=== PATIENT | male | born 1965 | race Caucasian/White ===

== ENCOUNTER 2018-08-06 17:02 | Emergency (ER) | payer MEDICAID, OTHER ==
[~2018-08-06] VITALS: Ht 170.2 cm; Wt 86.2 kg
--- NOTE | 2018-08-06 17:43 | NUR ---
BIBWIFE C/O LEFT HIP PAIN RADIATING TO LEFT LEG SINCE THIS MORNING. PT DENIES TRAUMA HX LEFT HIP REPLACEMENT X 5 YRS AGO. PT AOX3 RR EVEN AND UNLABORED. NO SOB NOTED. NAD NOTED. NO NVD AT THIS TIME. PT PLACED ON MONITOR, LUCIUS GODOY AT BEDSIDE FOR EVAL.
[2018-08-06] MEDS ORDERED: DEXAMETHASONE SOD PHOSPHATE 10 MG/ML VIAL IV ONE (18:00)
[2018-08-06] MEDS ORDERED: HYDROMORPHONE 1 MG/1 ML DISP.SYRIN IV ONE (18:00)
[2018-08-06] MEDS ORDERED: ONDANSETRON HCL/PF 4 MG/2 ML VIAL IV ONE (18:00)
[2018-08-06] MEDS ORDERED: KETOROLAC TROMETHAMINE INJ 30 MG/ML VIAL IV ONE (18:00)
[2018-08-06] MEDS ORDERED: ONDANSETRON HCL/PF 4 MG/2 ML VIAL ONE (18:19)
[2018-08-06] MEDS ORDERED: DEXAMETHASONE SOD PHOSPHATE 10 MG/ML VIAL ONE (18:19)
[2018-08-06] MEDS ORDERED: KETOROLAC TROMETHAMINE INJ 30 MG/ML VIAL ONE (18:19)
[2018-08-06] MEDS ORDERED: HYDROMORPHONE 1 MG/1 ML DISP.SYRIN ONE (18:19)
[2018-08-06 19:10] VITALS: BP 127/75
--- NOTE | 2018-08-06 19:10 | NUR ---
REPORT RECEIVED FROM CAROL ANN ANNE. CARE OF PT ASSUMED BY THIS RN. ASSISTANCE OFFERED. PT STATES HE IS FEELING BETTER AND HOPING TO SLEEP THROUGH THE NIGHT.
--- NOTE | 2018-08-06 19:41 | NUR ---
DISCHARGE INSTRUCTIONS GIVEN VERBAL AND WRITTEN. ADVISED PT ON FOLLOW UP AND TO RETURN TO ED IF FEELING WORSE NOT BETTER. ADIVSED PT AGAINST DRINKING OR DRIVING WHILE TAKING NARCOTICS. VERBALIZED UNDERSTANDING ALL QUESTIONS ANSWERED. IV DISCONTINUED CATHETER TIP INTACT BLEEDING CONTROLLED. SKIN PINK WARM AND DRY RESPS EVEN AND NON LABORED NO ACUTE DISTRESS. PT AMBULATED FROM ED WITH DRIVING, STEADY GAIT.
== END 2018-08-06 19:48 | disposition home or self-care (01) ==
LOC: ER 17:08
DX: M54.17 Radiculopathy, lumbosacral region (principal); M54.5 Low back pain; M51.37 Other intervertebral disc degeneration, lumbosacral region
CPT/HCPCS: 96374; 96375; 99284; A4606; J1100; J1170; J1885; J2405; Z7610

== ENCOUNTER 2018-08-08 19:17 | Emergency (ER) | payer MEDICAID ==
[~2018-08-08] VITALS: Ht 170.2 cm; Wt 94.3 kg
--- NOTE | 2018-08-08 20:00 | NUR ---
TO ER BED 6 C/O BACK PAIN X 3 DAYS. PT HAS HX OF CHRONIC BACK PAIN. PT AA/OX4. DENIES ANY TRUAMA. NO S/S SOB. SKIN PINK, WARM,DRY. MOVES ALL EXTREMITIES. WELL. PEDAL PULSES PRESENT. NAD. VSS. STABLE CONDITION. WILL CONTINUE TO MONITOR.
[2018-08-08] MEDS ORDERED: KETOROLAC TROMETHAMINE INJ 30 MG/ML VIAL ONE (20:43)
[2018-08-08] MEDS ORDERED: MORPHINE SULFATE INJ 4 MG/ML DISP.SYRIN ONE (20:43)
[2018-08-08] MEDS ORDERED: MORPHINE SULFATE INJ 2 MG/ML DISP.SYRIN ONE (20:43)
[2018-08-08] MEDS ORDERED: ONDANSETRON 4 MG TAB.RAPDIS ONE (20:44)
[2018-08-08] MEDS ORDERED: MORPHINE SULFATE INJ 2 MG/ML DISP.SYRIN IM ONE (21:00)
[2018-08-08] MEDS ORDERED: KETOROLAC TROMETHAMINE INJ 60 MG/2 ML VIAL IM ONE (21:00)
[2018-08-08] MEDS ORDERED: ONDANSETRON 4 MG TAB.RAPDIS SL ONE (21:00)
--- NOTE | 2018-08-08 21:44 | NUR ---
Patient is resting comfortably in bed with eyes closed. Easily aroused. VSS
[2018-08-08] MEDS ORDERED: CYCLOBENZAPRINE 10 MG TABLET PO ONE (22:00)
[2018-08-08 22:03] LABS: BASOPHILS % (AUTO) 0.3 % (0.0-2.0); EOSINOPHILS % (AUTO) 1.7 % (0.0-6.0); HEMATOCRIT 44 % (39-51); HEMOGLOBIN 14.1 g/dL (13.5-17.5); LYMPHOCYTES # (AUTO) 4.2 /CMM (0.8-4.8); LYMPHOCYTES % (AUTO) 30.4 % (20.0-44.0); MEAN CORPUSCULAR HGB CONC 32 g/dl (31.0-36.0); MEAN CORPUSCULAR VOLUME 93 fL (80-96); MONOCYTES # (AUTO) 0.9 /CMM (0.1-1.30); MONOCYTES % (AUTO) 6.3 % (2.0-12.0); NEUTROPHILS # (AUTO) 8.4 /CMM (1.8-8.9); NEUTROPHILS % (AUTO) 61.3 % (43.0-81.0); PLATELET COUNT (AUTO) 231 /CMM (150-450); RED BLOOD CELL COUNT(AUTO) 4.71 MIL/uL (4.5-6.0); WHITE BLOOD COUNT (AUTO) 13.7 K/uL (4.3-11.0)
[2018-08-08] MEDS ORDERED: CYCLOBENZAPRINE 10 MG TABLET ONE (22:10)
[2018-08-08 22:12] LABS: CALCIUM, SERUM 8.4 mg/dL (8.5-10.1); POTASSIUM 3.9 mmol/L (3.5-5.1)
--- NOTE | 2018-08-08 22:32 | NUR ---
Note [email or web address] in EDM - 08/08/18 at 2245 by MIKI Patient eloped from facility. ALESSANDRO DILLON notified.Patient has signed AMA form. Patient discharged to home in stable condition. AMBULATED WITH SPOUSE ASSISTANCE. INSTRUCTED NOT TO OPERATE OR DRIVE HEAVY MACHINERY
--- NOTE | 2018-08-08 22:32 | NUR ---
Note james in EDM - 08/08/18 at 2242 by MIKI Patient does not wish to proceed with medical care recommended by Dr. MURO. Patient given information related to possible complications, up to and including , which could occur as a result of leaving the hospital at this time. Patient verbalizes understanding of risks involved due to leaving against medical advice. Patient has signed AMA form. Patient discharged to home in stable condition. Written and verbal after care instructions given. Patient verbalizes understanding of instruction. AMBULATED WITH SPOUSE ASSISTANCE. INSTRUCTED NOT TO OPERATE OR DRIVE HEAVY MACHINERY
--- NOTE | 2018-08-08 22:32 | NUR ---
Patient does not wish to proceed with medical care recommended by LUCIUS JONES. Patient given information related to possible complications, up to and including , which could occur as a result of leaving the hospital at this time. Patient verbalizes understanding of risks involved due to leaving against medical advice. Patient has signed AMA form. Patient discharged to home in stable condition. Written and verbal after care instructions given. Patient verbalizes understanding of instruction. AMBULATED WITH SPOUSE ASSISTANCE. INSTRUCTED NOT TO OPERATE OR DRIVE HEAVY MACHINERY
[2018-08-08 22:34] VITALS: BP 122/76
== END 2018-08-08 22:35 | disposition left against medical advice (07) ==
LOC: ER 19:21
DX: M54.16 Radiculopathy, lumbar region (principal); G89.29 Other chronic pain; M54.30 Sciatica, unspecified side; Z96.642 Presence of left artificial hip joint
CPT/HCPCS: 80048; 85025; 96372 ×2; 99284; A4606; J1885; J2270 ×2; Q0162; Z7610; 36415

== ENCOUNTER 2021-10-21 21:08 | Emergency (ER) | payer MEDICAID ==
[~2021-10-21] VITALS: Ht 167.6 cm; Wt 94.3 kg
[2021-10-21 22:05] VITALS: BP 142/79
[2021-10-21] MEDS ORDERED: HYDROMORPHONE 1 MG/1 ML DISP.SYRIN ONE ×2 (22:50→23:18)
[2021-10-21] MEDS ORDERED: DEXAMETHASONE 4 MG TABLET ONE (22:54)
[2021-10-21] MEDS ORDERED: DEXAMETHASONE 1 MG TABLET PO ONE (23:00)
[2021-10-21] MEDS ORDERED: HYDROMORPHONE 1 MG/1 ML DISP.SYRIN IM ONE ×2 (23:00→23:30)
--- NOTE | 2021-10-21 23:17 | NUR ---
Patient discharged to home in stable condition. Written and verbal after care instructions given. Patient verbalizes understanding of instruction.
== END 2021-10-21 23:53 | disposition home or self-care (01) ==
LOC: ER 21:12
DX: M54.41 Lumbago with sciatica, right side (principal); F17.290 Nicotine dependence, other tobacco product, uncomplicated
CPT/HCPCS: 96372 ×2; 99284; J1170 ×2; J8540

== ENCOUNTER 2021-11-05 03:27 | Emergency (ER) | payer MEDICAID ==
[~2021-11-05] VITALS: Ht 175.3 cm; Wt 90.7 kg
--- NOTE | 2021-11-05 03:41 | NUR ---
BIB FOR C/O R HIP PAIN RADIATING TO R LEG "SCIATIC PAIN". BREATHING EVEN AND UNLABORED PLACED ON MONITOR AND ALL V/S STABLE.
[2021-11-05] MEDS ORDERED: CYCLOBENZAPRINE 10 MG TABLET PO ONE (04:00)
[2021-11-05] MEDS ORDERED: HYDROMORPHONE INJ 2 MG/ML DISP.SYRIN IM ONE ×2 (04:00→05:30)
[2021-11-05] MEDS ORDERED: ONDANSETRON 4 MG TAB.RAPDIS SL ONE (04:00)
[2021-11-05] MEDS ORDERED: KETOROLAC TROMETHAMINE INJ 60 MG/2 ML VIAL IM ONE (04:00)
[2021-11-05] MEDS ORDERED: KETOROLAC TROMETHAMINE INJ 30 MG/ML VIAL ONE (04:07)
[2021-11-05] MEDS ORDERED: HYDROMORPHONE INJ 2 MG/ML DISP.SYRIN ONE ×2 (04:07→05:11)
[2021-11-05] MEDS ORDERED: CYCLOBENZAPRINE 10 MG TABLET ONE (04:08)
[2021-11-05] MEDS ORDERED: ONDANSETRON 4 MG TAB.RAPDIS ONE (04:08)
[2021-11-05] MEDS ORDERED: CYCL10TA9 PO (04:11)
[2021-11-05] MEDS ORDERED: HYDR-3980 PO (04:11)
[2021-11-05] MEDS ORDERED: ONDA4TAB5 PO (04:11)
--- NOTE | 2021-11-05 05:18 | NUR ---
Patient discharged to home in stable condition. Written and verbal after care instructions given. Patient verbalizes understanding of instruction.
[2021-11-05 05:19] VITALS: BP 166/97
== END 2021-11-05 05:19 | disposition home or self-care (01) ==
LOC: ER 03:29
DX: M54.41 Lumbago with sciatica, right side (principal); G89.29 Other chronic pain; F17.210 Nicotine dependence, cigarettes, uncomplicated; Z98.890 Other specified postprocedural states
CPT/HCPCS: 96372 ×2; 99284; J1170 ×2; J1885; Q0162

== ENCOUNTER 2022-03-21 03:48 | Emergency (ER) | payer MEDICAID ==
[~2022-03-21] VITALS: Ht 175.3 cm; Wt 97.1 kg
[~2022-03-21 03:48] MED LIST: CYCL10TA9 PO; HYDR-3980 PO; ONDA4TAB5 PO
[2022-03-21 04:23] VITALS: BP 151/74
[2022-03-21] MEDS ORDERED: CARISOPRODOL 350 MG TABLET ONE (04:39)
[2022-03-21] MEDS ORDERED: HYDROMORPHONE 1 MG/1 ML DISP.SYRIN ONE (04:39)
[2022-03-21] MEDS: HYDROMORPHONE 1 MG/1 ML DISP.SYRIN IM ONE (04:52)
[2022-03-21] MEDS: CARISOPRODOL 350 MG TABLET PO ONE (04:53)
== END 2022-03-21 07:05 | disposition home or self-care (01) ==
LOC: ER 03:58
DX: G89.29 Other chronic pain (principal); M54.42 Lumbago with sciatica, left side; F17.200 Nicotine dependence, unspecified, uncomplicated; Z87.39 Personal history of other diseases of the musculoskeletal system and connective tissue; Z96.642 Presence of left artificial hip joint; Z79.899 Other long term (current) drug therapy
CPT/HCPCS: 96372; 99283; J1170